=== PATIENT | male | born 1975 | race Caucasian/White ===

== ENCOUNTER 2016-06-01 23:15 | Emergency (ER) | payer BC, OTHER ==
--- NOTE | 2016-06-02 01:00 | REPUSA ---
CT of the head Clinical history: syncope, fall. Technique: Multiple axial CT images were obtained through the head without administration of contrast . Findings: The ventricles and sulci are symmetric bilaterally. There is no evidence of acute hemorrhag e or infarct. There is no midline shift, mass effect, or extra-axial fluid collection. The osseous st ructures are unremarkable. There is minimal mucosal thickening within the left ethmoid left maxillary sinuses. The other visualized paranasal sinuses and mastoid air cells are clear. Impression: No acute intracranial hemorrhage or infarct. Minimal chronic mucosal changes in the left ethmoid sinus and left maxillary sinus.
[2016-06-02 01:11] LABS: BASO % 0.5 % (0.0-1.0); EOS # 0.1 K/mm3 (0.0-0.50); EOS % 1.3 % (0.0-3.0); LARGE UNSTAINED CELL # 0.3 K/mm3 (0.0-0.4); LARGE UNSTAINED CELL % 3.8 % (0.0-4.0); LYMPH # 1.2 K/mm3 (1.5-4.5); LYMPH % 18.9 % (24.0-44.0); MEAN CORPUSCULAR HEMOGLOBIN 29.8 pg (27.0-33.0); MEAN CORPUSCULAR HGB CONC 34.6 g/dl (32.0-36.5); MEAN CORPUSCULAR VOLUME 86.2 fl (80.0-96.0); MONO # 0.8 K/mm3 (0.0-0.8); NEUTROPHILS # 4.1 K/mm3 (1.8-7.7); NEUTROPHILS % 62.6 % (36.0-66.0); PLATELET COUNT, AUTOMATED 270 k/mm3 (150-450); RED CELL DISTRIBUTION WIDTH 12.3 % (11.5-14.5); WHITE BLOOD COUNT 6.5 K/mm3 (4.0-10.0)
[2016-06-02 01:26] LABS: ALBUMIN 3.8 GM/DL (3.2-5.2); ALBUMIN/GLOBULIN RATIO 1.03 (1.00-1.93); ALKALINE PHOSPHATASE 71 U/L (45-117); ALT/SGPT 226 U/L (12-78); ANION GAP 9 MEQ/L (8-16); AST/SGOT 141 U/L (15-37); BILIRUBIN,TOTAL 0.6 MG/DL (0.2-1.0); BLOOD UREA NITROGEN 11 MG/DL (7-18); CALCIUM LEVEL 8.3 MG/DL (8.5-10.1); CARBON DIOXIDE LEVEL 26 MEQ/L (21-32); CHLORIDE LEVEL 104 MEQ/L (98-107); CREATININE FOR GFR 1.07 MG/DL (0.70-1.30); GLOMERULAR FILTRATION RATE > 60.0 (>60); GLUCOSE, FASTING 107 MG/DL (70-105); POTASSIUM SERUM 3.8 MEQ/L (3.5-5.1); SODIUM LEVEL 139 MEQ/L (136-145); TOTAL PROTEIN 7.5 GM/DL (6.4-8.2)
[2016-06-02] MEDS ORDERED: guaiFENesin DM LIQ 10ML UD As Ordered ONE (04:17)
--- NOTE | 2016-06-02 04:23 | EDDOCDS ---
Nurse's Notes [facility] Name: López Gill Jr Age: 41 yrs Sex: Male : 1975 Arrival Date: 06/01/2016 Time: 23:15 Bed 6 Private MD: Diagnosis: Acute upper respiratory infection, unspecified-viral Presentation: 06/01 23:30 Presenting complaint: Patient states: Dry persistent cough for a week that causes pt to jo3 "pass out". Pt states he has lost consciousness 2-3 times due to cough. states that he fell down tonight and struck head. told pt that he was out for a few seconds. Suicide/Homicide risk assessment- the patient denies having any suicidal and/or homicidal ideations and does not present with any other emotional, behavioral or mental health complaints. Status: Patient is not a director social service or dependent. Transition of care: patient was not received from another setting of care. 23:30 Method Of Arrival: Walkin/Carried/Asstd jo3 23:37 Adult Sepsis Screening: Accepted Exclusions- The patient does not have new or worsening jo3 altered mentation. Patient's respiratory rate is less than 22. Systolic blood pressure is greater than 100. Patient has a qSOFA score of 0- Negative Sepsis Screen. 23:37 Acuity: YOCASTA Level 3 jo3 Triage Assessment: 23:33 General: Appears in no apparent distress, Behavior is appropriate for age, cooperative. jo3 Pain: Location: forehead and nose Pain currently is 5 out of 10 on a pain scale. HIV screening NA for this visit Offered previously. Neurological: Level of Consciousness is awake, alert, Oriented to person, place, time. Respiratory: Airway is patent Respiratory effort is even, unlabored. Derm: Skin is pink, warm & dry. Historical: - Allergies: No known drug Allergies; - Home Meds: 1. dayquil (Last dose: 06/01/2016 18:00) - PMHx: none; - PSHx: none; - Social history: Smoking status: Patient states was never smoker of tobacco. No barriers to communication noted, The patient speaks fluent Malagasy, Speaks appropriately for age. - Family history: Not pertinent. - : The pt / caregiver states he / she is not on anticoagulants. Home medication list is obtained from the patient. - Exposure Risk Screening:: None identified. Screenin:53 Screening information is obtained from the patient. Fall risk: No risks identified. tm5 Assistance ADL's: requires no assistance with activities of daily living. Abuse/DV Screen: The patient / caregiver reports he/she is: not in a situation that causes fear, pain or injury. Nutritional screening: No deficits noted. Advance Directives: Currently, there is no health care proxy. There is no active DNR order. home support is adequate. Assessment: 23:54 General: Appears in no apparent distress, Behavior is appropriate for age, cooperative. tm5 Pain: Location: forehead Pain currently is 4 out of 10 on a pain scale. Quality of pain is described as aching, throbbing. 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 Full function Gait is steady, Speech is normal, Facial symmetry appears normal, Facial symmetry: tongue is midline, Pupils are PERRLA, Reports headache since he fell at home with syncopal episode, striking his face/forehead on the hard wood cordelia per . Cardiovascular: Rhythm is sinus rhythm No ectopy. Chest pain is denied. Respiratory: Airway is patent Respiratory effort is even, unlabored, Respiratory pattern is regular, symmetrical, Breath sounds are clear bilaterally. GI: No deficits noted. : No deficits noted. Derm: Skin is pink, warm & dry. 06/02 01:21 Reassessment: Patient appears in no apparent distress at this time. Patient states tm5 feeling better. Patient states symptoms have improved. 02:23 Reassessment: Patient appears in no apparent distress at this time. Patient states tm5 feeling better. Patient states symptoms have improved. Vital Signs: 06/01 23:33 BP 144 / 77; Pulse 98; Resp 18; Temp 99.2(T); Pulse Ox 94% ; Weight 104.33 kg (R); jo3 Height 5 ft. 10 in. (177.80 cm); 23:51 BP 141 / 76 (auto/); tm5 23:53 Pulse 98 MON; Resp 18 S; Pulse Ox 94% on R/A; Pain 4/10; tm5 06/02 01:03 BP 142 / 76 Supine; Pulse 84; tm5 01:03 BP 138 / 73 Sitting; Pulse 106; tm5 01:03 BP 127 / 70 Standing; Pulse 110; tm5 01:21 BP 129 / 75 (auto/); tm5 01:21 Pulse 92 MON; Resp 20 S; Pulse Ox 91% on R/A; Pain 0/10; tm5 02:18 BP 129 / 69 Supine; Pulse 89; tm5 02:18 BP 132 / 70 Sitting; Pulse 94; tm5 02:18 BP 134 / 77 Standing; Pulse 114; tm5 02:21 BP 147 / 70 (auto/); tm5 02:21 Pulse 88 MON; Pulse Ox 92% ; tm5 02:51 BP 138 / 68 (auto/); tm5 02:51 Pulse 82 MON; Resp 20 S; Pulse Ox 93% on R/A; Pain 0/10; tm5 04:19 BP 120 / 69; Pulse 97; Resp 18; Temp 99.7(O); Pulse Ox 94% on R/A; Pain 7/10; mdr 04:22 BP 120 / 69; Pulse 104; Resp 18; Temp 98.0(TE); Pulse Ox 94% on R/A; af2 06/01 23:33 Body Mass Index 33.00 (104.33 kg, 177.80 cm) jo3 Vitals: 06/01 23:33 Log In Time: June 01, 2016 at 23:15. jo3 ED Course: 23:16 Patient visited by Bienvenido Brar Reg. pm4 23:16 Patient moved to Waiting pm4 23:35 Patient visited by Traci Ceron,CHERYL. jo3 23:35 Patient moved to PD2 / 27 jo3 23:38 Triage Initiated jo3 23:44 Patient moved to 6 jo3 23:48 Saleem Quick DO is PHCP. gk1 23:48 Delmar Cross DO is Attending Physician. gk1 23:53 Patient visited by Keyla Hassan,CHERYL. tm5 23:53 Resident to see patient. tm5 23:53 The patient / caregiver is instructed regarding the plan of care and ED course. Cardiac tm5 monitor on. Pulse ox on. NIBP on. 06/02 00:02 Patient visited by Paras Ceja PCA. mdr 00:02 EKG done. (by ED staff). Reviewed by Saleem Quick DO. mdr 00:23 Patient visited by Saleem Quick DO. gk1 00:23 Patient visited by Saleem Quick DO. gk1 00:44 Patient visited by Keyla Hassan RN. tm5 00:44 -Blood Culture Sent. tm5 00:44 -Influenza A&B Rapid Antigen - Nose Sent. tm5 00:44 Complete Comphrensive Metabolic Sent. tm5 00:44 CBC with Diff Sent. tm5 00:44 Inserted saline lock: 18 gauge in right hand and blood collected. The patient tolerated tm5 the procedure well. Labs/Blood culture drawn. 00:[address] tm5 00:46 Patient moved to radiology. tm5 01:04 Notified attending ED physician of notified Dr Cross of Orthostatic BP results orders tm5 received. 01:36 CT Head Without Contrast Returned. EDMS 01:38 Patient visited by Keyla Hassan RN. tm5 01:52 [facility] Payment Agreement was scanned into [employer] and attached to record. hs2 02:10 Patient visited by Saleem Quick DO. gk1 02:23 Patient visited by Keyla Hassan RN. tm5 02:24 Notified attending ED physician of Dr Cross aware of repeat Orthostatic BPs without tm5 improvements. 02:56 Patient visited by Keyla Hassan RN. tm5 04:14 Patient visited by Paras Ceja PCA. mdr 04:20 Patient visited by Paras Ceja PCA. mdr 04:22 No procedures done that require assistance. af2 Administered Medications: 01:05 Drug: NS 0.9% 1000 ml [sodium chloride 0.9 % intravenous solution] Route: IV; Rate: tm5 bolus; Site: right hand; 02:13 Follow up: IV Status: Completed infusion; IV Intake: 1000ml tm5 02:25 Drug: NS 0.9% 1000 ml [sodium chloride 0.9 % intravenous solution] Route: IV; Rate: tm5 bolus; Site: right hand; 04:21 Drug: Dextromethorphan-Guaifenesin 5 ml [dextromethorphan-guaifenesin 10 mg-100 mg/5 mL af2 oral liquid (5 mL)] Route: PO; Intake: 02:13 IV: 1000.00ml; Total: 1000.00ml. tm5 Order Results: Lab Order: CBC with Diff; SPEC'M 06/02/16 00:42 Test: WHITE BLOOD COUNT; Value: 6.5; Range: 4.0-10.0; Units: K/mm3; Status: F Test: RED BLOOD COUNT; Value: 5.02; Range: 4.30-6.10; Units: M/mm3; Status: F Test: HEMOGLOBIN; Value: 14.9; Range: 14.0-18.0; Units: g/dl; Status: F Test: HEMATOCRIT; Value: 43.2; Range: 42.0-52.0; Units: %; Status: F Test: MEAN CORPUSCULAR VOLUME; Value: 86.2; Range: 80.0-96.0; Units: fl; Status: F Test: MEAN CORPUSCULAR HEMOGLOBIN; Value: 29.8; Range: 27.0-33.0; Units: pg; Status: F Test: MEAN CORPUSCULAR HGB CONC; Value: 34.6; Range: 32.0-36.5; Units: g/dl; Status: F Test: RED CELL DISTRIBUTION WIDTH; Value: 12.3; Range: 11.5-14.5; Units: %; Status: F Test: PLATELET COUNT, AUTOMATED; Value: 270; Range: 150-450; Units: k/mm3; Status: F Test: NEUTROPHILS %; Value: 62.6; Range: 36.0-66.0; Units: %; Status: F Test: LYMPH %; Value: 18.9; Range: 24.0-44.0; Abnormal: Below low normal; Units: %; Status: F Test: MONO %; Value: 13.0; Range: 0.0-5.0; Abnormal: Above high normal; Units: %; Status: F Test: EOS %; Value: 1.3; Range: 0.0-3.0; Units: %; Status: F Test: BASO %; Value: 0.5; Range: 0.0-1.0; Units: %; Status: F Test: LARGE UNSTAINED CELL %; Value: 3.8; Range: 0.0-4.0; Units: %; Status: F Test: NEUTROPHILS #; Value: 4.1; Range: 1.8-7.7; Units: K/mm3; Status: F Test: LYMPH #; Value: 1.2; Range: 1.5-4.5; Abnormal: Below low normal; Units: K/mm3; Status: F Test: MONO #; Value: 0.8; Range: 0.0-0.8; Units: K/mm3; Status: F Test: EOS #; Value: 0.1; Range: 0.0-0.50; Units: K/mm3; Status: F Test: BASO #; Value: 0.0; Range: 0.0-0.2; Units: K/mm3; Status: F Test: LARGE UNSTAINED CELL #; Value: 0.3; Range: 0.0-0.4; Units: K/mm3; Status: F Lab Order: Complete Comphrensive Metabolic; SPEC'M 06/02/16 00:42 Test: GLUCOSE, FASTING; Value: 107; Range: 70-105; Abnormal: Above high normal; Units: MG/DL; Status: F Test: BLOOD UREA NITROGEN; Value: 11; Range: 7-18; Units: MG/DL; Status: F Test: CREATININE FOR GFR; Value: 1.07; Range: 0.70-1.30; Units: MG/DL; Status: F Test: GLOMERULAR FILTRATION RATE; Value: > 60.0; Range: >60; Status: F Test: SODIUM LEVEL; Value: 139; Range: 136-145; Units: MEQ/L; Status: F Test: POTASSIUM SERUM; Value: 3.8; Range: 3.5-5.1; Units: MEQ/L; Status: F Test: CHLORIDE LEVEL; Value: 104; Range: 98-107; Units: MEQ/L; Status: F Test: CARBON DIOXIDE LEVEL; Value: 26; Range: 21-32; Units: MEQ/L; Status: F Test: ANION GAP; Value: 9; Range: 8-16; Units: MEQ/L; Status: F Test: CALCIUM LEVEL; Value: 8.3; Range: 8.5-10.1; Abnormal: Below low normal; Units: MG/DL; Status: F Test: AST/SGOT; Value: 141; Range: 15-37; Abnormal: Above high normal; Units: U/L; Status: F Test: ALT/SGPT; Value: 226; Range: 12-78; Abnormal: Above high normal; Units: U/L; Status: F Test: ALKALINE PHOSPHATASE; Value: 71; Range: 45-117; Units: U/L; Status: F Test: BILIRUBIN,TOTAL; Value: 0.6; Range: 0.2-1.0; Units: MG/DL; Status: F Test: TOTAL PROTEIN; Value: 7.5; Range: 6.4-8.2; Units: GM/DL; Status: F Test: ALBUMIN; Value: 3.8; Range: 3.2-5.2; Units: GM/DL; Status: F Test: ALBUMIN/GLOBULIN RATIO; Value: 1.03; Range: 1.00-1.93; Status: F Test Note: ; Units are mL/min/1.73 m2 Chronic Kidney Disease Staging per NKF: Stage I & II GFR >=60 Normal to Mildly Decreased Stage III GFR 30-59 Moderately Decreased Stage IV GFR 15-29 Severely Decreased Stage V GFR <15 Very Little GFR Left ESRD GFR <15 on [facility] Lab Order: -Influenza A&B Rapid Antigen - Nose; SPEC'M 06/02/16 00:42 Test: INFLUENZA A RAPID SCR by ICA; Value: INFLUENZA A RESULTS NEGATIVE; Status: F Test: INFLUENZA A RAPID SCR by ICA; Value: Comments:; Status: F Test: INFLUENZA B RAPID SCR by ICA; Value: INFLUENZA B RESULTS NEGATIVE; Status: F Test Note: ; The Influenza test is a direct rapid immunoassay for the qualitative detection of Influenza viral antigen. Cell culture (Viral Culture) testing should be considered to confirm NEGATIVE results and to assist in detecting other viruses that can provide similar clinical symptoms. Please contact the lab within 24 hours ([phone]) if confirmatory testing is desired. Radiology Order: CT Head Without Contrast Test: CT Head Without Contrast REASON FOR EXAMINATION: Syncope; ; CT of the head; Clinical history: syncope, fall.; Technique: Multiple axial CT images were obtained through the head without administration of contrast; .; Findings: The ventricles and sulci are symmetric bilaterally. There is no evidence of acute hemorrhag; e or infarct. There is no midline shift, mass effect, or extra-axial fluid collection. The osseous st; ructures are unremarkable. There is minimal mucosal thickening within the left ethmoid left maxillary; sinuses. The other visualized paranasal sinuses and mastoid air cells are clear.; Impression: No acute intracranial hemorrhage or infarct. Minimal chronic mucosal changes in the left; ethmoid sinus and left maxillary sinus.; ; Outcome: 03:25 Discharge ordered by Provider. cs11 04:21 Discharge Assessment: Patient awake, alert and oriented x 3. No cognitive and/or af2 functional deficits noted. Patient verbalized understanding of disposition instructions. patient administered narcotics - no. The following High Risk Discharge criteria are identified: None. Discharged to home ambulatory. Condition: stable. Discharge instructions given to patient, Instructed on discharge instructions, follow up and referral plans. Demonstrated understanding of instructions, Pt was receptive of discharge instructions/ teaching. CT Study completed. Property :Personal belongings accompany Pt. 04:22 Patient left the ED. af2 Signatures: Dispatcher [employer] EDMS Traci Ceron RN RN jo3 Delmar Cross, DO DO cs11 Luz Fall RN RN af2 Paras Ceja, HOOP DRIVING MACHINE OPERATOR HOOP DRIVING MACHINE OPERATOR mdr Kaitlynn Garcia, Reg Reg hs2 Saleem Quick, DO DO gk1 Keyla Hassan RN RN tm5 Bienvenido Brar, Reg Reg pm4 MTDD
--- NOTE | 2016-06-02 04:23 | EDDOCDS ---
Physician Documentation [facility] Name: López Gill Jr Age: 41 yrs Sex: Male : 1975 Arrival Date: 06/01/2016 Time: 23:15 Bed 6 Private MD: Disposition: 06/02/16 03:25 Discharged to Home/Self Care. Impression: Acute upper respiratory infection, unspecified - viral. - Condition is Stable. - Medication Reconciliation, Local Pharmacy Hours form. - Follow up: Private Physician; When: Call to arrange an appointment; Reason: Recheck today's complaints. - Problem is an ongoing problem. - Symptoms have improved. Historical: - Allergies: No known drug Allergies; - Home Meds: 1. dayquil (Last dose: 06/01/2016 18:00) - PMHx: none; - PSHx: none; - Social history: Smoking status: Patient states was never smoker of tobacco. No barriers to communication noted, The patient speaks fluent Pashto, Speaks appropriately for age. - Family history: Not pertinent. - : The pt / caregiver states he / she is not on anticoagulants. Home medication list is obtained from the patient. - Exposure Risk Screening:: None identified. Vital Signs: 06/01 23:33 BP 144 / 77; Pulse 98; Resp 18; Temp 99.2(T); Pulse Ox 94% ; Weight 104.33 kg / 230.01 jo3 lbs (R); Height 5 ft. 10 in. (177.80 cm); 23:51 BP 141 / 76 (auto/); tm5 23:53 Pulse 98 MON; Resp 18 S; Pulse Ox 94% on R/A; Pain 4/10; tm5 02/17 01:03 BP 142 / 76 Supine; Pulse 84; tm5 01:03 BP 138 / 73 Sitting; Pulse 106; tm5 01:03 BP 127 / 70 Standing; Pulse 110; tm5 01:21 BP 129 / 75 (auto/); tm5 01:21 Pulse 92 MON; Resp 20 S; Pulse Ox 91% on R/A; Pain 0/10; tm5 02:18 BP 129 / 69 Supine; Pulse 89; tm5 02:18 BP 132 / 70 Sitting; Pulse 94; tm5 02:18 BP 134 / 77 Standing; Pulse 114; tm5 02:21 BP 147 / 70 (auto/); tm5 02:21 Pulse 88 MON; Pulse Ox 92% ; tm5 02:51 BP 138 / 68 (auto/); tm5 02:51 Pulse 82 MON; Resp 20 S; Pulse Ox 93% on R/A; Pain 0/10; tm5 04:19 BP 120 / 69; Pulse 97; Resp 18; Temp 99.7(O); Pulse Ox 94% on R/A; Pain 7/10; mdr 04:22 BP 120 / 69; Pulse 104; Resp 18; Temp 98.0(TE); Pulse Ox 94% on R/A; af2 06/01 23:33 Body Mass Index 33.00 (104.33 kg, 177.80 cm) jo3 MDM: 06/01 23:37 ECG WITH READING ER PHYS+CARDIAG ordered. EDMS 02 00:26 Orthostatic VS ordered. gk1 00:26 IV Saline Lock ordered. gk1 00:27 CBC with Diff Ordered. EDMS 00:27 Complete Comphrensive Metabolic Ordered. EDMS 00:27 -Influenza A&B Rapid Antigen - Nose Ordered. EDMS 00:28 -Blood Culture Ordered. EDMS 00:28 Chest, 2 View (pa\E\lat) Ordered. EDMS 00:37 CT Head Without Contrast Ordered. EDMS 00:45 -Blood Culture (Adults Only), peripheral from different site, or from device/port/PICC tm5 etc. if present ordered. 00:45 -Blood Culture (Adults Only), peripheral from different site, or from device/port/PICC tm5 etc. if present complete. 01:05 NS 0.9% 1000 ml IV at bolus once ordered. tm5 01:33 CBC with Diff Reviewed. gk1 01:33 Complete Comphrensive Metabolic Reviewed. gk1 01:33 -Influenza A&B Rapid Antigen - Nose Reviewed. gk1 01:52 Financial registration complete. hs2 01:52 [facility] [place] Agreement was scanned into [employer] and attached to record. hs2 02:00 CT Head Without Contrast Reviewed. gk1 02:03 Orthostatic VS ordered. gk1 02:25 NS 0.9% 1000 ml IV at bolus once ordered. tm5 03:48 Dextromethorphan-Guaifenesin Liquid 10 mg-100 mg/5 mL 5 ml PO once ordered. gk1 Administered Medications: 01:05 Drug: NS 0.9% 1000 ml [sodium chloride 0.9 % intravenous solution] Route: IV; Rate: tm5 bolus; Site: right hand; 02:13 Follow up: IV Status: Completed infusion; IV Intake: 1000ml tm5 02:25 Drug: NS 0.9% 1000 ml [sodium chloride 0.9 % intravenous solution] Route: IV; Rate: tm5 bolus; Site: right hand; 04:21 Drug: Dextromethorphan-Guaifenesin 5 ml [dextromethorphan-guaifenesin 10 mg-100 mg/5 mL af2 oral liquid (5 mL)] Route: PO; Signatures: Dispatcher [employer] EDTraci Lyons,RN RN jo3 Delmar Cross, DO DO cs11 Luz Fall RN RN af2 Kaitlynn Garcia, Reg Reg hs2 Saleem Quick, DO DO gk1 Keyla Hassan RN RN tm5 The chart was reviewed and I authenticate all verbal orders and agree with the evaluation and treatment provided.Attachments: 01:52 ON LICENSE OF [facility] Payment Agreement hs2 MTDD
--- NOTE | 2016-06-02 08:01 | REP ---
Clinical: Cough . Comparison: None . Technique: PA and lateral. Findings: The mediastinum and cardiac silhouette are normal. The lung flanagan are clear and without acute consolidation, effusion, or pneumothorax. The skeletal structures are intact and normal. Impression: 1. No acute cardiopulmonary process. Signed by Elijah Frederick MD 06/02/2016 07:52 A
--- NOTE | 2016-06-02 19:50 | ECGEPIP ---
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
--- NOTE | 2016-06-04 05:23 | EDDOCDS ---
Physician Documentation [facility] Name: López Gill Jr Age: 41 yrs Sex: Male : 1975 Arrival Date: 06/01/2016 Time: 23:15 Bed 6 Private MD: Disposition: 06/02/16 03:25 Discharged to Home/Self Care. Impression: Acute upper respiratory infection, unspecified - viral. - Condition is Stable. - Medication Reconciliation, Local Pharmacy Hours form. - Follow up: Private Physician; When: Call to arrange an appointment; Reason: Recheck today's complaints. - Problem is an ongoing problem. - Symptoms have improved. Historical: - Allergies: No known drug Allergies; - Home Meds: 1. dayquil (Last dose: 06/01/2016 18:00) - PMHx: none; - PSHx: none; - Social history: Smoking status: Patient states was never smoker of tobacco. No barriers to communication noted, The patient speaks fluent Tamazight, Speaks appropriately for age. - Family history: Not pertinent. - : The pt / caregiver states he / she is not on anticoagulants. Home medication list is obtained from the patient. - Exposure Risk Screening:: None identified. Vital Signs: 06/01 23:33 BP 144 / 77; Pulse 98; Resp 18; Temp 99.2(T); Pulse Ox 94% ; Weight 104.33 kg / 230.01 jo3 lbs (R); Height 5 ft. 10 in. (177.80 cm); 23:51 BP 141 / 76 (auto/); tm5 23:53 Pulse 98 MON; Resp 18 S; Pulse Ox 94% on R/A; Pain 4/10; tm5 02/17 01:03 BP 142 / 76 Supine; Pulse 84; tm5 01:03 BP 138 / 73 Sitting; Pulse 106; tm5 01:03 BP 127 / 70 Standing; Pulse 110; tm5 01:21 BP 129 / 75 (auto/); tm5 01:21 Pulse 92 MON; Resp 20 S; Pulse Ox 91% on R/A; Pain 0/10; tm5 02:18 BP 129 / 69 Supine; Pulse 89; tm5 02:18 BP 132 / 70 Sitting; Pulse 94; tm5 02:18 BP 134 / 77 Standing; Pulse 114; tm5 02:21 BP 147 / 70 (auto/); tm5 02:21 Pulse 88 MON; Pulse Ox 92% ; tm5 02:51 BP 138 / 68 (auto/); tm5 02:51 Pulse 82 MON; Resp 20 S; Pulse Ox 93% on R/A; Pain 0/10; tm5 04:19 BP 120 / 69; Pulse 97; Resp 18; Temp 99.7(O); Pulse Ox 94% on R/A; Pain 7/10; mdr 04:22 BP 120 / 69; Pulse 104; Resp 18; Temp 98.0(TE); Pulse Ox 94% on R/A; af2 06/01 23:33 Body Mass Index 33.00 (104.33 kg, 177.80 cm) jo3 MDM: 06/01 23:37 ECG WITH READING ER PHYS+CARDIAG ordered. EDMS 02 00:26 Orthostatic VS ordered. gk1 00:26 IV Saline Lock ordered. gk1 00:27 CBC with Diff Ordered. EDMS 00:27 Complete Comphrensive Metabolic Ordered. EDMS 00:27 -Influenza A&B Rapid Antigen - Nose Ordered. EDMS 00:28 -Blood Culture Ordered. EDMS 00:28 Chest, 2 View (pa\E\lat) Ordered. EDMS 00:37 CT Head Without Contrast Ordered. EDMS 00:45 -Blood Culture (Adults Only), peripheral from different site, or from device/port/PICC tm5 etc. if present ordered. 00:45 -Blood Culture (Adults Only), peripheral from different site, or from device/port/PICC tm5 etc. if present complete. 01:05 NS 0.9% 1000 ml IV at bolus once ordered. tm5 01:33 CBC with Diff Reviewed. gk1 01:33 Complete Comphrensive Metabolic Reviewed. gk1 01:33 -Influenza A&B Rapid Antigen - Nose Reviewed. gk1 01:52 Financial registration complete. hs2 01:52 [facility] [place] Payment Agreement was scanned into [employer] and attached to record. hs2 02:00 CT Head Without Contrast Reviewed. gk1 02:03 Orthostatic VS ordered. gk1 02:25 NS 0.9% 1000 ml IV at bolus once ordered. tm5 03:48 Dextromethorphan-Guaifenesin Liquid 10 mg-100 mg/5 mL 5 ml PO once ordered. gk1 11:32 T-Sheet-- Draft Copy was scanned into [employer] and attached to record. gb 11:33 ECG/EKG was scanned into General [employer] and attached to record. gb 11:33 Radiology Report was scanned into General [employer] and attached to record. gb Administered Medications: 01:05 Drug: NS 0.9% 1000 ml [sodium chloride 0.9 % intravenous solution] Route: IV; Rate: tm5 bolus; Site: right hand; 02:13 Follow up: IV Status: Completed infusion; IV Intake: 1000ml tm5 02:25 Drug: NS 0.9% 1000 ml [sodium chloride 0.9 % intravenous solution] Route: IV; Rate: tm5 bolus; Site: right hand; 04:21 Drug: Dextromethorphan-Guaifenesin 5 ml [dextromethorphan-guaifenesin 10 mg-100 mg/5 mL af2 oral liquid (5 mL)] Route: PO; Signatures: Dispatcher [employer] EDMS Jessy Denise, Reg Reg gb Traci Ceron,RN RN jo3 Delmar Cross, DO DO cs11 Luz Fall RN RN af2 Kaitlynn Garcia, Reg Reg hs2 Saleem Quick, DO DO gk1 Keyla Hassan,RN RN tm5 The chart was reviewed and I authenticate all verbal orders and agree with the evaluation and treatment provided.Attachments: 01:52 [facility] Payment Agreement hs2 11:32 T-Sheet-- Draft Copy gb 11:33 ECG/EKG gb Chart Complete MTDD
--- NOTE | 2016-06-04 05:23 | EDDOCDS ---
Physician Documentation [facility] Name: López Gill Jr Age: 41 yrs Sex: Male : 1975 Arrival Date: 06/01/2016 Time: 23:15 Bed 6 Private MD: Disposition: 06/02/16 03:25 Discharged to Home/Self Care. Impression: Acute upper respiratory infection, unspecified - viral. - Condition is Stable. - Medication Reconciliation, Local Pharmacy Hours form. - Follow up: Private Physician; When: Call to arrange an appointment; Reason: Recheck today's complaints. - Problem is an ongoing problem. - Symptoms have improved. Historical: - Allergies: No known drug Allergies; - Home Meds: 1. dayquil (Last dose: 06/01/2016 18:00) - PMHx: none; - PSHx: none; - Social history: Smoking status: Patient states was never smoker of tobacco. No barriers to communication noted, The patient speaks fluent Urdu, Speaks appropriately for age. - Family history: Not pertinent. - : The pt / caregiver states he / she is not on anticoagulants. Home medication list is obtained from the patient. - Exposure Risk Screening:: None identified. Vital Signs: 06/01 23:33 BP 144 / 77; Pulse 98; Resp 18; Temp 99.2(T); Pulse Ox 94% ; Weight 104.33 kg / 230.01 jo3 lbs (R); Height 5 ft. 10 in. (177.80 cm); 23:51 BP 141 / 76 (auto/); tm5 23:53 Pulse 98 MON; Resp 18 S; Pulse Ox 94% on R/A; Pain 4/10; tm5 02/17 01:03 BP 142 / 76 Supine; Pulse 84; tm5 01:03 BP 138 / 73 Sitting; Pulse 106; tm5 01:03 BP 127 / 70 Standing; Pulse 110; tm5 01:21 BP 129 / 75 (auto/); tm5 01:21 Pulse 92 MON; Resp 20 S; Pulse Ox 91% on R/A; Pain 0/10; tm5 02:18 BP 129 / 69 Supine; Pulse 89; tm5 02:18 BP 132 / 70 Sitting; Pulse 94; tm5 02:18 BP 134 / 77 Standing; Pulse 114; tm5 02:21 BP 147 / 70 (auto/); tm5 02:21 Pulse 88 MON; Pulse Ox 92% ; tm5 02:51 BP 138 / 68 (auto/); tm5 02:51 Pulse 82 MON; Resp 20 S; Pulse Ox 93% on R/A; Pain 0/10; tm5 04:19 BP 120 / 69; Pulse 97; Resp 18; Temp 99.7(O); Pulse Ox 94% on R/A; Pain 7/10; mdr 04:22 BP 120 / 69; Pulse 104; Resp 18; Temp 98.0(TE); Pulse Ox 94% on R/A; af2 06/01 23:33 Body Mass Index 33.00 (104.33 kg, 177.80 cm) jo3 MDM: 06/01 23:37 ECG WITH READING ER PHYS+CARDIAG ordered. EDMS 02 00:26 Orthostatic VS ordered. gk1 00:26 IV Saline Lock ordered. gk1 00:27 CBC with Diff Ordered. EDMS 00:27 Complete Comphrensive Metabolic Ordered. EDMS 00:27 -Influenza A&B Rapid Antigen - Nose Ordered. EDMS 00:28 -Blood Culture Ordered. EDMS 00:28 Chest, 2 View (pa\E\lat) Ordered. EDMS 00:37 CT Head Without Contrast Ordered. EDMS 00:45 -Blood Culture (Adults Only), peripheral from different site, or from device/port/PICC tm5 etc. if present ordered. 00:45 -Blood Culture (Adults Only), peripheral from different site, or from device/port/PICC tm5 etc. if present complete. 01:05 NS 0.9% 1000 ml IV at bolus once ordered. tm5 01:33 CBC with Diff Reviewed. gk1 01:33 Complete Comphrensive Metabolic Reviewed. gk1 01:33 -Influenza A&B Rapid Antigen - Nose Reviewed. gk1 01:52 Financial registration complete. hs2 01:52 [facility] Payment Agreement was scanned into [employer] and attached to record. hs2 02:00 CT Head Without Contrast Reviewed. gk1 02:03 Orthostatic VS ordered. gk1 02:25 NS 0.9% 1000 ml IV at bolus once ordered. tm5 03:48 Dextromethorphan-Guaifenesin Liquid 10 mg-100 mg/5 mL 5 ml PO once ordered. gk1 11:32 T-Sheet-- Draft Copy was scanned into [employer] and attached to record. gb 11:33 ECG/EKG was scanned into [employer] and attached to record. gb 11:33 Radiology Report was scanned into [employer] and attached to record. gb Administered Medications: 01:05 Drug: NS 0.9% 1000 ml [sodium chloride 0.9 % intravenous solution] Route: IV; Rate: tm5 bolus; Site: right hand; 02:13 Follow up: IV Status: Completed infusion; IV Intake: 1000ml tm5 02:25 Drug: NS 0.9% 1000 ml [sodium chloride 0.9 % intravenous solution] Route: IV; Rate: tm5 bolus; Site: right hand; 04:21 Drug: Dextromethorphan-Guaifenesin 5 ml [dextromethorphan-guaifenesin 10 mg-100 mg/5 mL af2 oral liquid (5 mL)] Route: PO; Signatures: Dispatcher [employer] EDMS Jessy Denise, Reg Reg gb Traci Ceron,RN RN jo3 Delmar Cross, DO DO cs11 Luz Fall RN RN af2 Kaitlynn Garcia, Reg Reg hs2 Saleem Quick, DO DO gk1 Keyla Hassan,RN RN tm5 The chart was reviewed and I authenticate all verbal orders and agree with the evaluation and treatment provided.Attachments: 01:52 [facility] Payment Agreement hs2 11:32 T-Sheet-- Draft Copy gb 11:33 ECG/EKG gb Chart Complete MTDD
--- NOTE | 2016-06-04 05:23 | EDDOCDS ---
Nurse's Notes [facility] Name: Guevara Vauhgn Jr Age: 41 yrs Sex: Male : 1975 Arrival Date: 06/01/2016 Time: 23:15 Bed 6 Private MD: Diagnosis: Acute upper respiratory infection, unspecified-viral Presentation: 06/01 23:30 Presenting complaint: Patient states: Dry persistent cough for a week that causes pt to jo3 "pass out". Pt states he has lost consciousness 2-3 times due to cough. states that he fell down tonight and struck head. told pt that he was out for a few seconds. Suicide/Homicide risk assessment- the patient denies having any suicidal and/or homicidal ideations and does not present with any other emotional, behavioral or mental health complaints. 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 Transition of care: patient was not received from another setting of care. 23:30 Method Of Arrival: Walkin/Carried/Asstd jo3 23:37 Adult Sepsis Screening: Accepted Exclusions- The patient does not have new or worsening jo3 altered mentation. Patient's respiratory rate is less than 22. Systolic blood pressure is greater than 100. Patient has a qSOFA score of 0- Negative Sepsis Screen. 23:37 Acuity: YOCASTA Level 3 jo3 Triage Assessment: 23:33 General: Appears in no apparent distress, Behavior is appropriate for age, cooperative. jo3 Pain: Location: forehead and nose Pain currently is 5 out of 10 on a pain scale. HIV screening NA for this visit Offered previously. Neurological: Level of Consciousness is awake, alert, Oriented to person, place, time. Respiratory: Airway is patent Respiratory effort is even, unlabored. Derm: Skin is pink, warm & dry. Historical: - Allergies: No known drug Allergies; - Home Meds: 1. dayquil (Last dose: 06/01/2016 18:00) - PMHx: none; - PSHx: none; - Social history: Smoking status: Patient states was never smoker of tobacco. No barriers to communication noted, The patient speaks fluent Trinidadian, Speaks appropriately for age. - Family history: Not pertinent. - : The pt / caregiver states he / she is not on anticoagulants. Home medication list is obtained from the patient. - Exposure Risk Screening:: None identified. Screenin:53 Screening information is obtained from the patient. Fall risk: No risks identified. tm5 Assistance ADL's: requires no assistance with activities of daily living. Abuse/DV Screen: The patient / caregiver reports he/she is: not in a situation that causes fear, pain or injury. Nutritional screening: No deficits noted. Advance Directives: Currently, there is no health care proxy. There is no active DNR order. home support is adequate. Assessment: 23:54 General: Appears in no apparent distress, Behavior is appropriate for age, cooperative. tm5 Pain: Location: forehead Pain currently is 4 out of 10 on a pain scale. Quality of pain is described as aching, throbbing. 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 Full function Gait is steady, Speech is normal, Facial symmetry appears normal, Facial symmetry: tongue is midline, Pupils are PERRLA, Reports headache since he fell at home with syncopal episode, striking his face/forehead on the hard wood cordelia per . Cardiovascular: Rhythm is sinus rhythm No ectopy. Chest pain is denied. Respiratory: Airway is patent Respiratory effort is even, unlabored, Respiratory pattern is regular, symmetrical, Breath sounds are clear bilaterally. GI: No deficits noted. : No deficits noted. Derm: Skin is pink, warm & dry. 06/02 01:21 Reassessment: Patient appears in no apparent distress at this time. Patient states tm5 feeling better. Patient states symptoms have improved. 02:23 Reassessment: Patient appears in no apparent distress at this time. Patient states tm5 feeling better. Patient states symptoms have improved. Vital Signs: 06/01 23:33 BP 144 / 77; Pulse 98; Resp 18; Temp 99.2(T); Pulse Ox 94% ; Weight 104.33 kg (R); jo3 Height 5 ft. 10 in. (177.80 cm); 23:51 BP 141 / 76 (auto/); tm5 23:53 Pulse 98 MON; Resp 18 S; Pulse Ox 94% on R/A; Pain 4/10; tm5 06/02 01:03 BP 142 / 76 Supine; Pulse 84; tm5 01:03 BP 138 / 73 Sitting; Pulse 106; tm5 01:03 BP 127 / 70 Standing; Pulse 110; tm5 01:21 BP 129 / 75 (auto/); tm5 01:21 Pulse 92 MON; Resp 20 S; Pulse Ox 91% on R/A; Pain 0/10; tm5 02:18 BP 129 / 69 Supine; Pulse 89; tm5 02:18 BP 132 / 70 Sitting; Pulse 94; tm5 02:18 BP 134 / 77 Standing; Pulse 114; tm5 02:21 BP 147 / 70 (auto/); tm5 02:21 Pulse 88 MON; Pulse Ox 92% ; tm5 02:51 BP 138 / 68 (auto/); tm5 02:51 Pulse 82 MON; Resp 20 S; Pulse Ox 93% on R/A; Pain 0/10; tm5 04:19 BP 120 / 69; Pulse 97; Resp 18; Temp 99.7(O); Pulse Ox 94% on R/A; Pain 7/10; mdr 04:22 BP 120 / 69; Pulse 104; Resp 18; Temp 98.0(TE); Pulse Ox 94% on R/A; af2 06/01 23:33 Body Mass Index 33.00 (104.33 kg, 177.80 cm) jo3 Vitals: 06/01 23:33 Log In Time: June 01, 2016 at 23:15. jo3 ED Course: 23:16 Patient visited by Bienvenido Brar Reg. pm4 23:16 Patient moved to Waiting pm4 23:35 Patient visited by Traci Ceron,CHERYL. jo3 23:35 Patient moved to PD2 / 27 jo3 23:38 Triage Initiated jo3 23:44 Patient moved to 6 jo3 23:48 Saleem Quick DO is PHCP. gk1 23:48 Delmar Riojas DO is Attending Physician. gk1 23:53 Patient visited by Keyla Hassan,CHERYL. tm5 23:53 Resident to see patient. tm5 23:53 The patient / caregiver is instructed regarding the plan of care and ED course. Cardiac tm5 monitor on. Pulse ox on. NIBP on. 06/02 00:02 Patient visited by Paras Ceja PCA. mdr 00:02 EKG done. (by ED staff). Reviewed by Saleem Quick DO. mdr 00:23 Patient visited by Saleem Quick DO. gk1 00:23 Patient visited by Saleem Quick DO. gk1 00:44 Patient visited by Keyla Hassan RN. tm5 00:44 -Blood Culture Sent. tm5 00:44 -Influenza A&B Rapid Antigen - Nose Sent. tm5 00:44 Complete Comphrensive Metabolic Sent. tm5 00:44 CBC with Diff Sent. tm5 00:44 Inserted saline lock: 18 gauge in right hand and blood collected. The patient tolerated tm5 the procedure well. Labs/Blood culture drawn. 00:[address]. tm5 00:46 Patient moved to radiology. tm5 01:04 Notified attending ED physician of notified Dr Riojas of Orthostatic BP results orders tm5 received. 01:36 CT Head Without Contrast Returned. EDMS 01:38 Patient visited by Keyla Hassan RN. tm5 01:52 [facility] Payment Agreement was scanned into [employer] and attached to record. hs2 02:10 Patient visited by Saleem Quick DO. gk1 02:23 Patient visited by Keyla Hassan RN. tm5 02:24 Notified attending ED physician of Dr Riojas aware of repeat Orthostatic BPs without tm5 improvements. 02:56 Patient visited by Keyla Hassan RN. tm5 04:14 Patient visited by Paras Ceja PCA. mdr 04:20 Patient visited by Paras Ceja PCA. mdr 04:22 No procedures done that require assistance. af2 08:16 Chest, 2 View (pa\\E\\lat) Returned. EDMS 11:32 T-Sheet-- Draft Copy was scanned into [employer] and attached to record. gb 11:33 ECG/EKG was scanned into [employer] and attached to record. gb 11:33 Radiology Report was scanned into [employer] and attached to record. gb 20:03 EKG-ADULT Returned. EDMS Administered Medications: 01:05 Drug: NS 0.9% 1000 ml [sodium chloride 0.9 % intravenous solution] Route: IV; Rate: tm5 bolus; Site: right hand; 02:13 Follow up: IV Status: Completed infusion; IV Intake: 1000ml tm5 02:25 Drug: NS 0.9% 1000 ml [sodium chloride 0.9 % intravenous solution] Route: IV; Rate: tm5 bolus; Site: right hand; 04:21 Drug: Dextromethorphan-Guaifenesin 5 ml [dextromethorphan-guaifenesin 10 mg-100 mg/5 mL af2 oral liquid (5 mL)] Route: PO; Intake: 02:13 IV: 1000.00ml; Total: 1000.00ml. tm5 Order Results: Lab Order: CBC with Diff; SPEC'M 06/02/16 00:42 Test: WHITE BLOOD COUNT; Value: 6.5; Range: 4.0-10.0; Units: K/mm3; Status: F Test: RED BLOOD COUNT; Value: 5.02; Range: 4.30-6.10; Units: M/mm3; Status: F Test: HEMOGLOBIN; Value: 14.9; Range: 14.0-18.0; Units: g/dl; Status: F Test: HEMATOCRIT; Value: 43.2; Range: 42.0-52.0; Units: %; Status: F Test: MEAN CORPUSCULAR VOLUME; Value: 86.2; Range: 80.0-96.0; Units: fl; Status: F Test: MEAN CORPUSCULAR HEMOGLOBIN; Value: 29.8; Range: 27.0-33.0; Units: pg; Status: F Test: MEAN CORPUSCULAR HGB CONC; Value: 34.6; Range: 32.0-36.5; Units: g/dl; Status: F Test: RED CELL DISTRIBUTION WIDTH; Value: 12.3; Range: 11.5-14.5; Units: %; Status: F Test: PLATELET COUNT, AUTOMATED; Value: 270; Range: 150-450; Units: k/mm3; Status: F Test: NEUTROPHILS %; Value: 62.6; Range: 36.0-66.0; Units: %; Status: F Test: LYMPH %; Value: 18.9; Range: 24.0-44.0; Abnormal: Below low normal; Units: %; Status: F Test: MONO %; Value: 13.0; Range: 0.0-5.0; Abnormal: Above high normal; Units: %; Status: F Test: EOS %; Value: 1.3; Range: 0.0-3.0; Units: %; Status: F Test: BASO %; Value: 0.5; Range: 0.0-1.0; Units: %; Status: F Test: LARGE UNSTAINED CELL %; Value: 3.8; Range: 0.0-4.0; Units: %; Status: F Test: NEUTROPHILS #; Value: 4.1; Range: 1.8-7.7; Units: K/mm3; Status: F Test: LYMPH #; Value: 1.2; Range: 1.5-4.5; Abnormal: Below low normal; Units: K/mm3; Status: F Test: MONO #; Value: 0.8; Range: 0.0-0.8; Units: K/mm3; Status: F Test: EOS #; Value: 0.1; Range: 0.0-0.50; Units: K/mm3; Status: F Test: BASO #; Value: 0.0; Range: 0.0-0.2; Units: K/mm3; Status: F Test: LARGE UNSTAINED CELL #; Value: 0.3; Range: 0.0-0.4; Units: K/mm3; Status: F Lab Order: Complete Comphrensive Metabolic; SPEC'M 06/02/16 00:42 Test: GLUCOSE, FASTING; Value: 107; Range: 70-105; Abnormal: Above high normal; Units: MG/DL; Status: F Test: BLOOD UREA NITROGEN; Value: 11; Range: 7-18; Units: MG/DL; Status: F Test: CREATININE FOR GFR; Value: 1.07; Range: 0.70-1.30; Units: MG/DL; Status: F Test: GLOMERULAR FILTRATION RATE; Value: > 60.0; Range: >60; Status: F Test: SODIUM LEVEL; Value: 139; Range: 136-145; Units: MEQ/L; Status: F Test: POTASSIUM SERUM; Value: 3.8; Range: 3.5-5.1; Units: MEQ/L; Status: F Test: CHLORIDE LEVEL; Value: 104; Range: 98-107; Units: MEQ/L; Status: F Test: CARBON DIOXIDE LEVEL; Value: 26; Range: 21-32; Units: MEQ/L; Status: F Test: ANION GAP; Value: 9; Range: 8-16; Units: MEQ/L; Status: F Test: CALCIUM LEVEL; Value: 8.3; Range: 8.5-10.1; Abnormal: Below low normal; Units: MG/DL; Status: F Test: AST/SGOT; Value: 141; Range: 15-37; Abnormal: Above high normal; Units: U/L; Status: F Test: ALT/SGPT; Value: 226; Range: 12-78; Abnormal: Above high normal; Units: U/L; Status: F Test: ALKALINE PHOSPHATASE; Value: 71; Range: 45-117; Units: U/L; Status: F Test: BILIRUBIN,TOTAL; Value: 0.6; Range: 0.2-1.0; Units: MG/DL; Status: F Test: TOTAL PROTEIN; Value: 7.5; Range: 6.4-8.2; Units: GM/DL; Status: F Test: ALBUMIN; Value: 3.8; Range: 3.2-5.2; Units: GM/DL; Status: F Test: ALBUMIN/GLOBULIN RATIO; Value: 1.03; Range: 1.00-1.93; Status: F Test Note: ; Units are mL/min/1.73 m2 Chronic Kidney Disease Staging per NKF: Stage I & II GFR >=60 Normal to Mildly Decreased Stage III GFR 30-59 Moderately Decreased Stage IV GFR 15-29 Severely Decreased Stage V GFR <15 Very Little GFR Left ESRD GFR <15 on EMBALMER/FUNERAL DIRECTOR Lab Order: -Influenza A&B Rapid Antigen - Nose; SPEC'M 06/02/16 00:42 Test: INFLUENZA A RAPID SCR by ICA; Value: INFLUENZA A RESULTS NEGATIVE; Status: F Test: INFLUENZA A RAPID SCR by ICA; Value: Comments:; Status: F Test: INFLUENZA B RAPID SCR by ICA; Value: INFLUENZA B RESULTS NEGATIVE; Status: F Test Note: ; The Influenza test is a direct rapid immunoassay for the qualitative detection of Influenza viral antigen. Cell culture (Viral Culture) testing should be considered to confirm NEGATIVE results and to assist in detecting other viruses that can provide similar clinical symptoms. Please contact the lab within 24 hours ([phone]) if confirmatory testing is desired. Lab Order: -Blood Culture; SPEC'M 06/02/16 00:42 Test: BLOOD CULTURE; Value: No growth after 24 hours . All specimens observed; Status: F Test: BLOOD CULTURE; Value: for 5 days. Results final at that time.; Status: F Test: BLOOD CULTURE; Value: No Growth after 48 hours. All Specimens observed; Status: F Test: BLOOD CULTURE; Value: for 7 days. 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 The lung flanagan are clear and; without acute consolidation, effusion, or pneumothorax. The skeletal structures; are intact and normal.; ; Impression:; 1. No acute cardiopulmonary process.; ; ; Signed by; Elijah Frederick MD 06/02/2016 07:52 A; Radiology Order: CT Head Without Contrast Test: CT Head Without Contrast REASON FOR EXAMINATION: Syncope; ; CT of the head; Clinical history: syncope, fall.; Technique: Multiple axial CT images were obtained through the head without administration of contrast; .; Findings: The ventricles and sulci are symmetric bilaterally. There is no evidence of acute hemorrhag; e or infarct. There is no midline shift, mass effect, or extra-axial fluid collection. The osseous st; ructures are unremarkable. There is minimal mucosal thickening within the left ethmoid left maxillary; sinuses. The other visualized paranasal sinuses and mastoid air cells are clear.; Impression: No acute intracranial hemorrhage or infarct. Minimal chronic mucosal changes in the left; ethmoid sinus and left maxillary sinus.; ; Outcome: 03:25 Discharge ordered by Provider. cs11 04:21 Discharge Assessment: Patient awake, alert and oriented x 3. No cognitive and/or af2 functional deficits noted. Patient verbalized understanding of disposition instructions. patient administered narcotics - no. The following High Risk Discharge criteria are identified: None. Discharged to home ambulatory. Condition: stable. Discharge instructions given to patient, Instructed on discharge instructions, follow up and referral plans. Demonstrated understanding of instructions, Pt was receptive of discharge instructions/ teaching. CT Study completed. Property :Personal belongings accompany Pt. 04:22 Patient left the ED. af2 Signatures: Dispatcher [employer] EDMS Jessy Denise, Reg Reg gb Traci CeronRN RN jo3 Delmar Riojas, DO DO cs11 Luz FallRN RN af2 Paras Ceja, TOWBOAT CAPTAIN TOWBOAT CAPTAIN mdr Kaitlynn Garcia, Reg Reg hs2 Saleem Quick, DO DO gk1 Keyla HassanRN RN tm5 Bienvenido Brar, Reg Reg pm4 Chart Complete MTDD
== END 2016-06-02 04:22 | disposition home or self-care (01) ==
LOC: M ED 23:15
DX: J06.9 Acute upper respiratory infection, unspecified (principal)